=== PATIENT | male | born 1995 | race Caucasian/White ===

== ENCOUNTER 2018-09-07 08:40 | Emergency (ER) | payer OTHER ==
[~2018-09-07] VITALS: Ht 170.2 cm; Wt 66.2 kg
[2018-09-07 08:47] VITALS: BP 132/84
[2018-09-07] MEDS ORDERED: KETOROLAC 60 MG/2 ML VIAL IM ONE (10:00)
[2018-09-07] MEDS ORDERED: ONDANSETRON 4 MG ODT PO ONE (10:00)
[2018-09-07] MEDS ORDERED: DIPHENOXYLATE /ATROPINE 2.5 MG TAB PO ONE (10:00)
[2018-09-07 11:51] VITALS: BP 126/78
== END 2018-09-07 11:50 | disposition home or self-care (01) ==
LOC: MED 08:40
DX: J09.X2 Influenza due to identified novel influenza A virus with other respiratory manifestations (principal); R19.7 Diarrhea, unspecified; F17.210 Nicotine dependence, cigarettes, uncomplicated
CPT/HCPCS: 36415; 87804; 96372; 99283; J1885; Q0162

== ENCOUNTER 2019-09-23 10:55 | Emergency (ER) | payer OTHER ==
[~2019-09-23] VITALS: Ht 172.7 cm; Wt 68.5 kg
[2019-09-23 11:21] VITALS: BP 140/77
--- NOTE | 2019-09-23 11:26 | NUR ---
Triage completed, no bed available at this time, pt escorted out to lobby to wait, pt ambulate with steady gait without problem.
--- NOTE | 2019-09-23 11:36 | NUR ---
PT TO ER BED 10
--- NOTE | 2019-09-23 12:14 | NUR ---
Dr. Mcmillan is evaluating the patient at bedside.
[2019-09-23] MEDS ORDERED: NACL 0.9% 1,000 ML IV ONE (12:20)
[2019-09-23] MEDS ORDERED: diphenhydrAMINE 50 MG/ML VIAL IVP ONE (12:20)
[2019-09-23] MEDS ORDERED: METOCLOPRAMIDE 10 MG/2 ML INJ VIAL IVP ONE (12:20)
--- NOTE | 2019-09-23 12:30 | NUR ---
PT PRESENTS TO ED FOR EVALUATION OF HEADACHE, COUGH, FEVER X 1 WK. PT AAO X4, GCS 15, ABLE TO SPEAK WITH FULL COMPLETE SENTENCES. PUPILS PERRL 3/3 MM. AMBULATROY WITH STDEAY GAIT. RESPIRATIONS EVEN AND UNLABORED, BL LUNG CLEAR. SKIN WARM/PINK.DRY, +PMSC. VS WNL. DR. SELF MAD EAWARE OF PT STATUS. WILL CONTINUE TO MONITOR
--- NOTE | 2019-09-23 12:31 | NUR ---
Patient taken to CT scan via wheelchair by tech.
--- NOTE | 2019-09-23 12:45 | NUR ---
Patient returned from CT scan.
--- NOTE | 2019-09-23 13:29 | NUR ---
PT LAYING IN BED, FAMILY/FRIEND AT BEDSIDE. REPORTS 3/10 TOLERABLE HEADACHE, REPORTS IMPROVEMENT IN PAIN RELIEF. VSS. ALL NEEDS MET AT THIS TIME.
[2019-09-23 13:37] VITALS: BP 122/70
--- NOTE | 2019-09-23 13:37 | NUR ---
Patient discharged with v/s stable. Written and verbal after care instructions given and explained. Patient alert, oriented and verbalized understanding of instructions. Ambulatory with steady gait. All questions addressed prior to discharge. ID band removed. Work excuse provided for today. Patient advised to follow up with PMD. Rx of Augmentin 875mg, Ibuprofen 600mg, and Lillie 5mg-325mg given. Patient educated on indication of medication including possible reaction and side effects. Opportunity to ask questions provided and answered.
== END 2019-09-23 13:37 | disposition home or self-care (01) ==
LOC: MED 10:55
DX: L08.9 Local infection of the skin and subcutaneous tissue, unspecified (principal); R51 Headache; M54.2 Cervicalgia
CPT/HCPCS: 70450; 96374; 96375; 99284; J1200; J2765

== ENCOUNTER 2021-09-20 10:01 | Emergency (ER) | payer OTHER ==
[~2021-09-20] VITALS: Ht 170.2 cm; Wt 69.6 kg
[2021-09-20 11:05] VITALS: BP 142/77
--- NOTE | 2021-09-20 11:15 | NUR ---
EMILY NOVEL SWAB COLLECTED AND HANDED TO CASINO HOST
--- NOTE | 2021-09-20 11:40 | NUR ---
Patient discharged with v/s stable. Written and verbal after care instructions ABOUT COVID 19 given and explained. Patient verbalized understanding. Ambulatory with steady gait. All questions addressed prior to discharge. Advised to follow up with PMD.
== END 2021-09-20 11:40 | disposition home or self-care (01) ==
LOC: MED 10:01
DX: R05.9 Cough, unspecified (principal); Z20.822 Contact with and (suspected) exposure to COVID-19
CPT/HCPCS: 99283; U0003